=== PATIENT | female | born 1990 ===

== ENCOUNTER 2018-03-27 09:30 | Inpatient (IN) | payer OTHER ==
[~2018-03-27] VITALS: Ht 170.2 cm; Wt 96.2 kg
[2018-04-13] MEDS ORDERED: PRENATAL 19 TA1 EACH PO (06:40)
[2018-04-16] MEDS ORDERED: PERCOCET 5-3251 EACH PO (12:29)
[2018-04-16] MEDS ORDERED: SURFAK240 M1 PO (12:29)
== END 2018-04-16 13:46 | DRG 766 ==
LOC: OB/GYN 04-12 09:30 → LDR 04-13 05:57 → OB/GYN 04-14 01:24
PROVIDERS: Specialist
PROC: 10907ZC Drainage of Amniotic Fluid, Therapeutic from Products of Conception, Via Natural or Artificial Opening (ICD-10-PCS; 2018-04-13)
PROC: 4A033R1 Measurement of Arterial Saturation, Peripheral, Percutaneous Approach (ICD-10-PCS; 2018-04-13)
PROC: 4A1HXCZ Monitoring of Products of Conception, Cardiac Rate, External Approach (ICD-10-PCS; 2018-04-13)
PROC: 10D00Z1 Extraction of Products of Conception, Low, Open Approach (ICD-10-PCS; principal; 2018-04-13 23:00)
DX: O48.0 Post-term pregnancy (principal); O76 Abnormality in fetal heart rate and rhythm complicating labor and delivery; O62.0 Primary inadequate contractions; O99.824 Streptococcus B carrier state complicating childbirth; Z3A.40 40 weeks gestation of pregnancy; Z37.0 Single live birth